=== PATIENT | female | born 1925 | race Caucasian/White ===

== ENCOUNTER 2016-06-08 09:54 | Outpatient (CLI) | payer MEDICARE, BC | END 2016-06-08 23:59 | disposition home health service (06) | LOC: WOU 09:54 | PROVIDERS: ATTEND Podiatrist Foot & Ankle Surgery | DX: I83.013 Varicose veins of right lower extremity with ulcer of ankle (principal); L97.319 Non-pressure chronic ulcer of right ankle with unspecified severity; S91.012A Laceration without foreign body, left ankle, initial encounter; X58.XXXA Exposure to other specified factors, initial encounter; Y92.89 Other specified places as the place of occurrence of the external cause | CPT/HCPCS: 15271; A6402; Q4132 ==

== ENCOUNTER 2016-06-15 10:20 | Outpatient (CLI) | payer MEDICARE, BC | END 2016-06-15 23:59 | disposition home health service (06) | LOC: WOU 10:20 | PROVIDERS: ATTEND Podiatrist Foot & Ankle Surgery | DX: I83.013 Varicose veins of right lower extremity with ulcer of ankle (principal); L97.311 Non-pressure chronic ulcer of right ankle limited to breakdown of skin; I83.891 Varicose veins of right lower extremity with other complications; S91.012A Laceration without foreign body, left ankle, initial encounter; X58.XXXA Exposure to other specified factors, initial encounter; Y92.89 Other specified places as the place of occurrence of the external cause; Z87.891 Personal history of nicotine dependence | CPT/HCPCS: 15271; A6402 ==

== ENCOUNTER 2016-06-22 10:15 | Outpatient (CLI) | payer MEDICARE, BC | END 2016-06-22 23:59 | disposition home health service (06) | LOC: WOU 10:15 | PROVIDERS: ATTEND Podiatrist Foot & Ankle Surgery | DX: S91.012A Laceration without foreign body, left ankle, initial encounter (principal); S91.011A Laceration without foreign body, right ankle, initial encounter; X58.XXXA Exposure to other specified factors, initial encounter; Y92.89 Other specified places as the place of occurrence of the external cause | CPT/HCPCS: 15271; A6402; Q4133 ==

== ENCOUNTER 2016-06-30 10:10 | Outpatient (CLI) | payer MEDICARE, BC | END 2016-06-30 23:59 | disposition home health service (06) | LOC: WOU 10:10 | PROVIDERS: ATTEND Podiatrist Foot & Ankle Surgery | DX: I83.013 Varicose veins of right lower extremity with ulcer of ankle (principal); L97.311 Non-pressure chronic ulcer of right ankle limited to breakdown of skin; S91.012D Laceration without foreign body, left ankle, subsequent encounter; X58.XXXD Exposure to other specified factors, subsequent encounter | CPT/HCPCS: 15271; A6402 ==

== ENCOUNTER 2016-07-06 09:35 | Outpatient (CLI) | payer MEDICARE, BC | END 2016-07-06 23:59 | disposition home health service (06) | LOC: WOU 09:35 | PROVIDERS: ATTEND Podiatrist Foot & Ankle Surgery | DX: I87.311 Chronic venous hypertension (idiopathic) with ulcer of right lower extremity (principal); L97.311 Non-pressure chronic ulcer of right ankle limited to breakdown of skin; R60.0 Localized edema; S91.012D Laceration without foreign body, left ankle, subsequent encounter; X58.XXXD Exposure to other specified factors, subsequent encounter | CPT/HCPCS: 97597; A6402 ==

== ENCOUNTER 2016-07-13 09:55 | Outpatient (CLI) | payer MEDICARE, BC | END 2016-07-13 23:59 | disposition home or self-care (01) | LOC: WOU 09:55 | PROVIDERS: ATTEND Podiatrist Foot & Ankle Surgery | DX: I83.013 Varicose veins of right lower extremity with ulcer of ankle (principal); L97.311 Non-pressure chronic ulcer of right ankle limited to breakdown of skin; S81.812D Laceration without foreign body, left lower leg, subsequent encounter; S91.012D Laceration without foreign body, left ankle, subsequent encounter; W22.8XXD Striking against or struck by other objects, subsequent encounter; Z87.891 Personal history of nicotine dependence | CPT/HCPCS: 15271; A6402; Q4133 ==

== ENCOUNTER 2016-07-20 09:39 | Outpatient (CLI) | payer MEDICARE, BC | END 2016-07-20 23:59 | disposition home or self-care (01) | LOC: WOU 09:39 | PROVIDERS: ATTEND Podiatrist Foot & Ankle Surgery | DX: I83.013 Varicose veins of right lower extremity with ulcer of ankle (principal); L97.311 Non-pressure chronic ulcer of right ankle limited to breakdown of skin; S91.012A Laceration without foreign body, left ankle, initial encounter; W22.8XXA Striking against or struck by other objects, initial encounter; Y92.89 Other specified places as the place of occurrence of the external cause; R60.0 Localized edema | CPT/HCPCS: 15271; A6402; Q4133 ==

== ENCOUNTER 2016-07-27 10:00 | Outpatient (CLI) | payer MEDICARE, BC | END 2016-07-27 23:59 | disposition home or self-care (01) | DX: I83.213 Varicose veins of right lower extremity with both ulcer of ankle and inflammation (principal); L97.319 Non-pressure chronic ulcer of right ankle with unspecified severity; S91.012D Laceration without foreign body, left ankle, subsequent encounter; X58.XXXD Exposure to other specified factors, subsequent encounter; I83.899 Varicose veins of unspecified lower extremity with other complications | CPT/HCPCS: A6402; G0463 ==

== ENCOUNTER 2016-08-03 09:25 | Outpatient (CLI) | payer MEDICARE, BC | END 2016-08-03 23:59 | disposition home or self-care (01) | LOC: WOU 09:25 | PROVIDERS: ATTEND Podiatrist Foot & Ankle Surgery | DX: I83.013 Varicose veins of right lower extremity with ulcer of ankle (principal); I96 Gangrene, not elsewhere classified; L97.312 Non-pressure chronic ulcer of right ankle with fat layer exposed; S91.012D Laceration without foreign body, left ankle, subsequent encounter; X58.XXXD Exposure to other specified factors, subsequent encounter; Z87.891 Personal history of nicotine dependence | CPT/HCPCS: 11042; A6197; A6207; A6402 ==

== ENCOUNTER 2016-08-10 09:40 | Outpatient (CLI) | payer MEDICARE, BC | END 2016-08-10 23:59 | disposition home or self-care (01) | LOC: WOU 09:40 | PROVIDERS: ATTEND Podiatrist Foot & Ankle Surgery | DX: I83.013 Varicose veins of right lower extremity with ulcer of ankle (principal); L97.311 Non-pressure chronic ulcer of right ankle limited to breakdown of skin; I83.899 Varicose veins of unspecified lower extremity with other complications | CPT/HCPCS: 11042; A6197; A6207; A6402 ==

== ENCOUNTER 2016-08-17 09:47 | Outpatient (CLI) | payer MEDICARE, BC | END 2016-08-17 23:59 | disposition home or self-care (01) | LOC: WOU 09:47 | PROVIDERS: ATTEND Podiatrist Foot & Ankle Surgery | DX: I83.013 Varicose veins of right lower extremity with ulcer of ankle (principal); L97.319 Non-pressure chronic ulcer of right ankle with unspecified severity; I83.893 Varicose veins of bilateral lower extremities with other complications; S91.115A Laceration without foreign body of left lesser toe(s) without damage to nail, initial encounter; X58.XXXA Exposure to other specified factors, initial encounter; Y92.89 Other specified places as the place of occurrence of the external cause; Z87.891 Personal history of nicotine dependence; L60.3 Nail dystrophy | CPT/HCPCS: A6197; A6207; A6402; G0463 ==

== ENCOUNTER 2016-08-22 14:19 | Outpatient (CLI) | payer MEDICARE, BC | END 2016-08-22 23:59 | disposition home or self-care (01) | LOC: VASLAB 14:19 | PROVIDERS: ATTEND Surgery Vascular Surgery | DX: I87.2 Venous insufficiency (chronic) (peripheral) (principal); L97.311 Non-pressure chronic ulcer of right ankle limited to breakdown of skin; L97.521 Non-pressure chronic ulcer of other part of left foot limited to breakdown of skin; L97.821 Non-pressure chronic ulcer of other part of left lower leg limited to breakdown of skin; Z86.718 Personal history of other venous thrombosis and embolism | CPT/HCPCS: A6197; A6207; A6402 ==

== ENCOUNTER 2016-08-24 10:14 | Outpatient (CLI) | payer MEDICARE, BC | END 2016-08-24 23:59 | disposition home or self-care (01) | LOC: WOU 10:14 | PROVIDERS: ATTEND Podiatrist Foot & Ankle Surgery | DX: I83.013 Varicose veins of right lower extremity with ulcer of ankle (principal); L97.311 Non-pressure chronic ulcer of right ankle limited to breakdown of skin; I83.029 Varicose veins of left lower extremity with ulcer of unspecified site; L97.921 Non-pressure chronic ulcer of unspecified part of left lower leg limited to breakdown of skin; I83.893 Varicose veins of bilateral lower extremities with other complications; S91.115D Laceration without foreign body of left lesser toe(s) without damage to nail, subsequent encounter; X58.XXXD Exposure to other specified factors, subsequent encounter; Z87.891 Personal history of nicotine dependence | CPT/HCPCS: A6402; G0463 ==

== ENCOUNTER 2016-08-31 10:05 | Outpatient (CLI) | payer MEDICARE, BC | END 2016-08-31 23:59 | disposition home or self-care (01) | LOC: WOU 10:05 | PROVIDERS: ATTEND Podiatrist Foot & Ankle Surgery | DX: I83.892 Varicose veins of left lower extremity with other complications (principal); L84 Corns and callosities; L60.3 Nail dystrophy; Z87.891 Personal history of nicotine dependence | CPT/HCPCS: G0463 ==

== ENCOUNTER 2016-10-05 09:55 | Outpatient (CLI) | payer MEDICARE, BC | END 2016-10-05 23:59 | disposition home or self-care (01) | LOC: WOU 09:55 | PROVIDERS: ATTEND Podiatrist Foot & Ankle Surgery | DX: I87.321 Chronic venous hypertension (idiopathic) with inflammation of right lower extremity (principal); M79.674 Pain in right toe(s); M79.675 Pain in left toe(s); L60.3 Nail dystrophy | CPT/HCPCS: 11721; G0463 ==

== ENCOUNTER 2016-10-12 10:25 | Outpatient (CLI) | payer MEDICARE, BC | END 2016-10-12 23:59 | disposition home or self-care (01) | LOC: WOU 10:25 | PROVIDERS: ATTEND Podiatrist Foot & Ankle Surgery | DX: S81.811A Laceration without foreign body, right lower leg, initial encounter (principal); Y33.XXXA Other specified events, undetermined intent, initial encounter; Y92.89 Other specified places as the place of occurrence of the external cause; I83.893 Varicose veins of bilateral lower extremities with other complications; Z87.891 Personal history of nicotine dependence | CPT/HCPCS: G0463 ==

== ENCOUNTER 2016-10-26 09:30 | Outpatient (CLI) | payer MEDICARE, BC | END 2016-10-26 23:59 | disposition home or self-care (01) | LOC: WOU 09:30 | PROVIDERS: ATTEND Podiatrist Foot & Ankle Surgery | DX: S81.811D Laceration without foreign body, right lower leg, subsequent encounter (principal); Y33.XXXD Other specified events, undetermined intent, subsequent encounter; I87.321 Chronic venous hypertension (idiopathic) with inflammation of right lower extremity; R60.0 Localized edema; L84 Corns and callosities | CPT/HCPCS: G0463 ==

== ENCOUNTER 2016-12-18 09:41 | Outpatient (CLI) | payer MEDICARE, BC | END 2016-12-18 23:59 | disposition home or self-care (01) | LOC: WOU 09:41 | PROVIDERS: ATTEND Podiatrist Foot & Ankle Surgery | DX: Z09 Encounter for follow-up examination after completed treatment for conditions other than malignant neoplasm (principal); I83.893 Varicose veins of bilateral lower extremities with other complications; L85.1 Acquired keratosis [keratoderma] palmaris et plantaris; B35.1 Tinea unguium; L60.3 Nail dystrophy | CPT/HCPCS: A6402; G0463 ==